=== PATIENT | female | born 1955 | race Caucasian/White ===

== ENCOUNTER 2016-08-06 10:44 | Emergency (ER) | payer BC | END 2016-08-06 13:19 | disposition home or self-care (01) | LOC: D.ER 10:44 | DX: M54.5 Low back pain (principal); I10 Essential (primary) hypertension ==

== ENCOUNTER 2016-08-26 06:47 | Outpatient (CLI) | payer BC ==
[~2016-08-26] VITALS: Ht 167.6 cm; Wt 77.7 kg
--- NOTE | ~2016-08-26 | HEMODYNAMI ---
PATIENT:JOSE DEGROOT MEDICAL RECORD: [id number] : 57 LOCATION:[facility] ADMISSION DATE: 08/26/16 Generatedon:08/26/201610:50 Patient name: JOSE DEGROOT Patient #: [id number] SSN: : 1955 Date of study: 08/26/2016 Page: Of Hemodynamic Procedure Report Patient Data Patient Demographics Procedure consent was obtained First Name: JOSE Gender: Female Last Name: MIKAYLA : 1955 [facility] Initial: NINA Age: 61 year(s) Patient #: [id number] Race: Unknown Additional ID: [id number] Contact details Address: [address] [place] [address] [address] State: [place] City: [place] Zip code: [address] Past Medical History Allergies Allergen Reaction Date Comments Reported Morphine 08/26/2016 Sulfa drugs 08/26/2016 Admission Admission Data Admission Date: 08/26/2016 Admission Time: 6:47 Lab Results Lab Result Date: 08/26/2016 Lab Result Time: 0:00 Biochemistry Name Units Result Min Max Creatinine mg/dl 1 --(--*-)-- 0.6 1.3 CBC Name Units Result Min Max Hemoglobin g/dl 14.3 --(*---)-- 13.5 17.5 Procedure Procedure Types Cath Procedure Diagnostic Procedure [facility] w/Coronaries Miscellaneous Procedures Moderate Sedation up to 15 minutes Procedure Description Procedure Date Procedure Date: 08/26/2016 Procedure Start Time: 10:42 Procedure End Time: 10:50 Procedure Staff Name Function Benja Ball MD Performing Physician Kg Otoole RT Scrub Mary Valencia RN Nurse Tiera Dean RT Monitor Luis F Rajput RN Electronics Teacher Procedure Data Cath Procedure Fluoroscopy Diagnostic fluoroscopy Total fluoroscopy Time: 1.1 time: 1.1 min min Diagnostic fluoroscopy Total fluoroscopy dose: 329 dose: 329 mGy mGy Contrast Material Contrast Material Type Amount (ml) Isovue 300 54 Entry Location Entry Primary Successful Side Size Upsize Upsize Entry Closure Elizalde ccessful Closure Location (Fr) 1 (Fr) 2 (Fr) Remarks Device Remarks Radial Right 6 Fr Mechanical artery Short Compression Estimated blood loss: 5 ml Diagnostic catheters Device Type Used For End Catheter Placement Diagnostic Terumo 5Fr LV Angiography Pope 110cm catheter Diagnostic Terumo 5Fr Right Coronary Pope 110cm catheter Angiography Diagnostic Terumo 5Fr Left Coronary Pope 110cm catheter Angiography Procedure Complications No complications Procedure Medications Medication Administration Route Dosage Oxygen NC 2 l/min Lidocaine 2% added to field 20 Heparin Flush Bag added to field 2 bags (1000units/500ml NS) 0.9% NaCl I.V. 100 ml/hr Versed I.V. 1 mg Fentanyl I.V. 50 mcg Radial Cocktail I.A. 1 syringe (Verapomil 2mg/Nitro 400mcg/Heparin 1500units) Versed I.V. 1 mg Fentanyl I.V. 50 mcg Hemodynamics Rest Pre Cath Intra NCS Post Cath Vital Signs Time Heart Resp SPO2 etCO2 PO3juqs NIBP (mmHg) Rhythm Pain Sedation Rate (ipm) (%) (mmHg) (mmHg) Status Level (bpm) 10:30:52 75 16 100 0 0 154/90(131) NSR 0 (11) 10(A) , No pain 10:35:08 69 16 99 0 0 122/78(104) NSR 0 (11) 10(A) , No pain 10:39:16 72 17 98 0 0 110/86(95) NSR 0 (11) 9(A) , No pain 10:43:26 85 16 96 0 0 114/66(94) NSR 0 (11) 9(A) , No pain 10:47:28 96 18 97 0 0 104/81(95) NSR 0 (11) 10(A) , No pain Medications Time Medication Route Dose Verified Delivered Reason Notes Effectiveness by by 10:31:25 Oxygen NC 2 l/min Benja Hernandez used for Lizzy Valencia RN procedure 10:31:34 Lidocaine 2% added 20ml Benja Yousif for local to vial Lizzy Ball MD anesthetic field 10:31:41 Heparin Flush added 2 bags Benja Yousif used for Bag to Lizzy Ball MD procedure (1000units/500ml field NS) 10:31:52 0.9% NaCl I.V. 100 Benja Buffie Per ml/hr Lizzy Valencia RN physician 10:36:01 Versed I.V. 1 mg Benja Hernandez for sedation Lizzy Valencia RN 10:36:07 Fentanyl I.V. 50 mcg Benja Hernandez for sedation Lizzy Valencia RN 10:42:54 Radial Cocktail I.A. 1 Benja Yousif for (Verapomil syringe Lizzy Ball MD vasodilation 2mg/Nitro 400mcg/Heparin 1500units) 10:42:59 Versed I.V. 1 mg Benja Hernandez for sedation Lizzy Valencia RN 10:43:03 Fentanyl I.V. 50 mcg Benja Hernandez for sedation Lizzy Valencia RN Procedure Log Time Note 10:17:20 Informed consent obtained and on chart 10:18:22 Luis F Rjaput RN sent for patient. Start room use. 10:18:23 Time tracking: Regular hours 10:18:27 Plan of Care:Hemodynamics will remain stable., Cardiac rhythm will remain stable., Comfort level will be maintained., Respiratory function will remain adequate., Patient/ family verbilizes understanding of procedure., Procedure tolerated without complication., Recovers from procedure without complications.. 10:19:21 Patient received from Pre/Post Procedure Room to CCL 1 Alert and oriented. Tansferred to table in Supine position. 10:19:22 Warm blankets applied, and quynh hugger turned on for patient comfort. 10:19:22 Correct patient and procedure confirmed by team. 10:19:23 ECG and BP/O2 sat monitors applied to patient. 10:19:24 Full Disclosure recording started 10:29:45 Vital chart was started 10:30:43 Rhythm: sinus rhythm 10:31:25 Oxygen 2 l/min NC was administered by Mary Valencia RN; used for procedure; 10:31:34 Lidocaine 2% 20ml vial added to field was administered by Benja Ball MD; for local anesthetic; 10:31:41 Heparin Flush Bag (1000units/500ml NS) 2 bags added to field was administered by Benja Ball MD; used for procedure; 10:31:52 0.9% NaCl 100 ml/hr I.V. was administered by Mary Valencia RN; Per physician; 10:32:59 H&P Date Dictated: 08/26/2016 New H&P dictated by physician.. 10:33:02 Pre-procedure instructions explained to patient. 10:33:02 Pre-op teaching completed and patient verbalized understanding. 10:33:26 Family in patients room. 10:33:27 Patient NPO since Midnight. 10:34:09 Patient allergic to Morphine 10:34:14 Patient allergic to Sulfa drugs 10:34:17 Is the patient allergic to Iodine/contrast media? No. 10:34:21 Is patient on blood thinner?Yes 10:34:24 Patient diabetic? No. 10:34:30 ACC The patient was administered the following blood thiners within the last 24 hours: ACCPlavix 10:34:34 Previous problem with sedation/anesthesia? No ? 10:34:35 Snore? Yes 10:34:37 Sleep apnea? No 10:34:39 Deviated septum? No 10:34:39 Opens mouth fully? Yes 10:34:40 Sticks out tongue? Yes 10:34:42 Airway obstruction? No ? 10:34:44 Dentures? No ? 10:34:47 Pre procedure: right dorsailis pedis pulse 2+ Normal; easily identifiable; not easily obliterated 10:34:50 Modified Chris's test Ulnar < 7 seconds 10:34:51 Patient pain scale 0/10 ?. 10:34:57 IV patent on arrival in left antecubital with 0.9% NaCl at KVO. 10:35:18 Lab Result : Hemoglobin 14.3 g/dl 10:35:18 Lab Result : Creatinine 1 mg/dl 10:35:22 Lab results completed and on chart. 10:35:26 Right Radial & Right Groin area was prepped with chlora-prep and draped in sterile fashion 10:35:27 Alarms reviewed by R. N. 10:35:27 Sharps counted by scrub and verified by R.N. 10:35:29 Use device set Radial Dx 10:35:30 Acist Syringe opened to sterile field. 10:35:31 Medline Cath Pack opened to sterile field. 10:35:31 Bag Decanter opened to sterile field. 10:35:32 Terumo 6Fr Slender Glidesheath opened to sterile field. 10:35:32 St Vijay 260cm J .035 wire opened to sterile field. 10:35:33 Acist Hand Control opened to sterile field. 10:35:33 Acist Manifold opened to sterile field. 10:35:34 Tegaderm 4 x 4 opened to sterile field. 10:35:51 Final Timeout: patient, procedure, and site verified with staff and physician. All members of the team are in agreement. 10:35:53 Right Radial site verified by team. 10:35:56 Physical assessment completed. ASA score P 2 - A patient with mild systemic disease as per Benja Ball MD. 10:35:59 Sedation plan: IV Moderate Sedation Versed, Fentanyl 10:36:01 Versed 1 mg I.V. was administered by Mary Valencia RN; for sedation; 10:36:07 Fentanyl 50 mcg I.V. was administered by Mary Valencia RN; for sedation; 10:42:41 Procedure started. 10:42:45 Local anesthetic to right radial artery with Lidocaine 2% by Benja Ball MD.INITIAL ACCESS ONLY 10:42:53 A 6 Fr Short sheath was inserted into the Right Radial artery 10:42:54 Radial Cocktail (Verapomil 2mg/Nitro 400mcg/Heparin 1500units) 1 syringe I.A. was administered by Benja Ball MD; for vasodilation; 10::59 Versed 1 mg I.V. was administered by Mary Valencia RN; for sedation; 10:43:03 Fentanyl 50 mcg I.V. was administered by Mary Valencia RN; for sedation; 10:43:09 A Diagnostic Terumo 5Fr Pope 110cm catheter was advanced over the wire and used for LV Angiography. 10:43:43 Zero performed for pressure channel P1 10:43:49 Zero performed for pressure channel P1 10:43:56 Zero performed for pressure channel P1 10:44:04 Zero performed for pressure channel P1 10:44:06 Zero performed for pressure channel P1 10:44:09 Zero performed for pressure channel P1 10:44:30 LV gram done using WAGNER 10:44:34 EF : 55 % 10:44:37 LV hemodynamics recorded. 10:44:41 Injector settings: Ml/sec: 5, Volume: 15, 10:44:55 A Diagnostic Terumo 5Fr Pope 110cm catheter was advanced over the wire and used for Right Coronary Angiography. 10:45:44 A Diagnostic Terumo 5Fr Pope 110cm catheter was advanced over the wire and used for Left Coronary Angiography. 10:46:34 Catheter removed. 10:46:45 Sheath removed intact; hemostasis achieved with Mechanical Compression to the Right Radial artery. 10:46:54 Terumo TR Band Standard opened to sterile field. 10:47:08 Procedure ended.(Physican Out) 10:47:24 Fluoroscopy time 01.10 minutes. 10:47:27 Fluoroscopy dose: 329 mGy 10:47:27 Flurop Dose total: 329 10:47:31 Contrast amount:Isovue 300 54ml. 10:47:32 Sharps counted by scrub and verified by R.N. 10:47:35 TR band inflated with 10cc of air. 10:47:36 Insertion/operative site no bleeding no hematoma. 10:47:44 Post right radial artery:stable, clean and dry 10:47:46 Post Procedure Pulses reassessed and unchanged 10:47:53 Post-procedure physical assessment completed. ASA score P 2 - A patient with mild systemic disease as per Benja Ball MD. 10:47:55 Post procedure rhythm: unchanged. 10:47:57 Estimated blood loss: 5 ml 10:47:59 Post procedure instruction explained to patient.Patient verbalizes understanding. 10:47:59 Patient needs reinforcement of post procedure teaching. 10:48:13 Procedure type changed to Cath procedure, Diagnostic procedure, LHC, LHC w/Coronaries, Miscellaneous Procedures, Moderate Sedation up to 15 minutes 10:48:18 Procedure Complication : No complications 10:48:22 See physician's report for complete and final results. 10:50:00 Procedure and supply charges have been captured, reviewed, submitted and are correct. 10:50:01 Vital chart was stopped 10:50:03 Report given to Pre/Post Procedure Room. 10:50:06 Patient transfered to Pre/Post Procedure Room with Stretcher. 10:50:14 Procedure ended. 10:50:14 Full Disclosure recording stopped 10:50:16 End room use (Document Last) Device Usage Item Name Manufacture Quantity Catalog Hospital Part Current Minimal Lot# / Number Charge Number Stock Stock Serial# Code Acist Acist 1 [id number] [id number] [id number] [id number] 20 Syringe Truli Inc Medline Cardinal 1 [id number] 41315 [id number] 5 Cath Pack Health Bag Microtek 1 [id number] [id number] 58022 764246 5 Alea Inc. Terumo 6Fr Terumo 1 [id number] 466054 466480 238247 [address] St Vijay 1 501648 060676 345893 811685 30 260cm J .035 wire Acist Hand Acist 1 79086 988497 017349 908452 5 Control Medical Systems Inc Acist Acist 1 73967 702810 816072 995616 5 Manifold Medical Systems Inc Tegaderm 4 3M 1 [id number] 541149 979882 244022 5 x 4 Diagnostic Terumo 1 40-6071 682750 224204 358307 5 Terumo 5Fr Pope 110cm catheter Terumo TR Terumo 1 [id number] 147707 546336 294524 40 Band Standard Signature Audit Benedicta Stage Time Signature Unsigned Intra-Procedure 08/26/2016 Tiera 10:50:35 AM Counts RT(R) Signatures Monitor : Tiera Signature : Counts RT Date : Time : [address] [address]
[2016-08-26] MEDS ORDERED: PLAVIX75 MG PO (07:12)
[2016-08-26] MEDS ORDERED: TENORMIN25 MG PO (07:12)
[2016-08-26] MEDS ORDERED: ALEVE220 MG PO (07:13)
[2016-08-26 07:18] VITALS: BP 167/90; Ht 167.6 cm; Wt 77.7 kg
[2016-08-26 08:08] LABS: BASOPHILS 0.4 % (0-2); EOSINOPHILS 2.2 % (0-7); HEMATOCRIT 43.9 % (36.0-48.0); HEMOGLOBIN 14.3 g/dL (12-16); IMMATURE GRANULOCYTES 0.3 % (0-5); LYMPHOCYTES 28.8 % (15-50); MCH 28.6 pg (26.0-34.0); MCHC 32.6 g/dL (31.0-37.0); MCV 87.8 fL (80.0-100.0); MEAN PLATELET VOLUME 10.6 fL (7.4-10.4); NEUTROPHILS 60.3 % (40-80); PLATELET COUNT 254 10x3/uL (130-400); RDW 12.8 % (11.5-14.5); WBC 6.7 10x3/uL (4.8-10.8)
[2016-08-26 08:27] LABS: CALC OSMOLALITY 290 mosm/kg (275-300); CALCIUM 9.3 mg/dL (8.5-10.1); CARBON DIOXIDE 30.7 mmol/L (21.0-32.0); CHLORIDE - SERUM 106 mmol/L (98-107); CKMB 0.8 U/L (0.0-3.6); CREATINE KINASE 104 UL (21-215); GLUCOSE 95 mg/dL (74-106); POTASSIUM - SERUM 3.9 mmol/L (3.5-5.1); SODIUM 145 mmol/L (136-145); UREA NITROGEN 19 mg/dL (7-18); eGFR NON AFRICAN AMERICAN 60 mL/min (90-120)
[2016-08-26 08:29] LABS: TROPONIN-I < 0.017 ng/mL (0.000-0.060)
--- NOTE | 2016-08-26 11:00 | NUR ---
1100 RECIEVED TO ROOM VIA STRETCHER WITH TR BAND TO R/WRIST CDI NO BLEEDING NO HEMATOMA NOTED. REPORTS OF A CLEAN CATH WITH NO INTERVENTION AT THIS TIME. VSS WITH FAMILY AT SIDE
--- NOTE | 2016-08-26 11:30 | NUR ---
RESTING QUIETLY WITH CHEST PAIN DENIED. VSS WITH TR BAND TO R/WRIST CDI
--- NOTE | 2016-08-26 12:32 | NUR ---
2 CC AIR REMOVED FROM TR BAND WITH NO BLEEDING NOTED. REPOSITIONED TO SITTING WITH HOB UP 30 DEGREES. SANDWICH AND SODA TO BEDSIDE
--- NOTE | 2016-08-26 13:31 | NUR ---
1300 PT HAS TOLERATED SANDWICH WITH NO C/O NAUSEA. TR BAND HAS BEEN REMOVED, 2X2 AND TEGADERM PLACED TO SITE. NO BLEEDING OR HEMATOMA NOTED. AWAITING DR MERRITT TO SPEAK WITH PT. IV HAS BEEN DC'D WITH CATH INTACT. 1315 DR MERRITT HAS ROUNDED ON PT. REVIEWED DC INSTRUCTIONS AND PT VERBALIZES UNDERSTANDING. PT ESCORTED TO PRIVATE AUTO VIA WC BY STAFF WITH DAUGHTER DRIVING HER HOME.
--- NOTE | 2016-08-28 11:01 | HP ---
PATIENT: JOSE DEGROOT MEDICAL RECORD: [id number] ACCOUNT: [id number] LOCATION:[facility] : 57 ADMISSION DATE: 08/26/16 HISTORY AND PHYSICAL EXAMINATION PROBLEM LIST: 1. Angina. 2. Abnormal nuclear stress test. 3. Coronary artery disease. 4. Previous percutaneous transluminal coronary angioplasty stent. 5. Chronic NSAID therapy. 6. Gastroesophageal reflux disease. HISTORY OF PRESENT ILLNESS: The patient has had chest pain for the past two months in a somewhat escalating fashion. She does have a history of coronary artery disease, percutaneous transluminal coronary angioplasty stent approximately five years ago. She has done well until just recently. Due to the chest pain and chest discomfort, she underwent nuclear stress test revealing significant defect inferiorly septally. She is now brought for cardiac catheterization. PHYSICAL EXAMINATION: HEAD, EYES, EARS, NOSE, AND THROAT: Benign. NECK: Supple. No jugular venous distention. Carotid upstroke plus two bilaterally without bruits. LUNGS: Overall clear to auscultation and percussion. HEART: Regular. Normal S1, normal S2. No S3, no S4. No murmurs. BONES, JOINTS, EXTREMITIES: No clubbing, cyanosis, or edema. REVIEW OF SYSTEMS: Negative for myocardial infarction. Negative for coronary artery bypass graft surgery. Negative for cerebrovascular accident. Negative for carcinoma. Negative for smoking. Negative for atrial fibrillation. Negative for diabetes. Positive for hypertension on atenolol. OVERALL IMPRESSION: Chest discomfort, abnormal nuclear stress test, history of coronary artery disease. She has a high likelihood of recurrent hemodynamically significant coronary artery disease. Will proceed with coronary angiography. Further care depends upon the findings of the angiography. GEORGINA MERRITT MD at 1101 CC: [id number] DICTATION DATE: 08/26/16 0800 CONTINUOUS DRYOUT OPERATOR HELPER: DM 08/26/16 1118 DEP CLI 08/26/16 [facility] [address] [place] [address]
--- NOTE | 2016-08-28 11:01 | OP ---
PATIENT NAME: JOSE DEGROOT MEDICAL RECORD: [id number] :57 LOCATION:D[facility] ADMISSION DATE: SURGEON: GEORGINA MERRITT MD OPERATION DATE: 08/26/16 PROCEDURES: 1. Left heart catheterization. 2. Selective coronary angiography. 3. Left ventriculogram. INDICATION: 1. Chest pain compatible with angina. 2. Abnormal nuclear stress test. PROCEDURE IN DETAIL: After informed consent was obtained and after detailed explanation of risks, benefits, as well as alternative therapies, the patient elected to proceed with angiogram. The right radial area was prepped and draped in a normal sterile fashion. The right radial artery was cannulated via modified Seldinger technique with placement of 5-[place] sheath. All catheters exchanged through this sheath. FINDINGS: Left ventriculogram was performed in standard 30 degree WAGNER view, reveals good cardiac wall motion throughout all segments. Overall ejection fraction estimated 60%. SELECTIVE CORONARY ANGIOGRAPHY: The left main, left anterior descending, left circumflex, and right coronary artery are all smooth-walled vessels with no angiographic evidence of coronary artery disease. OVERALL IMPRESSION: 1. No angiographic evidence of coronary artery disease. 2. Normal left heart pressures. 3. Normal left ventricular systolic function. 4. Chest pain at this point is noncardiac in etiology. No further cardiac workup needs to be ascertained. GEORGINA MERRITT MD at 1101 CC: [id number] DICTATION DATE: 08/26/16 1100 UNDERTAKER ASSISTANT: DM 08/26/16 1126 DEP CLI 08/26/16 [place] [id number] [place] [id number]
== END 2016-08-26 13:15 | disposition home or self-care (01) ==
LOC: D.CATH 06:47
PROVIDERS: Internal Medicine Interventional Cardiology
DX: R07.89 Other chest pain (principal); Z01.812 Encounter for preprocedural laboratory examination

== ENCOUNTER 2017-01-26 11:10 | Day surgery (SDC) | payer BC ==
[2016-08-26 07:18] VITALS: BMI 27.6
[~2017-01-26 11:10] MED LIST: ALEVE220 MG PO; PLAVIX75 MG PO; TENORMIN25 MG PO
--- NOTE | 2017-01-26 11:57 | NUR ---
1115-RECD TO ROOM. COPY OF MRI FROM [facility] ACQUIRED. 1130-DR SHIELDS HERE TO EVALUATE PATIENT. 1145-CONTACT MADE WITH DR SANCHES'S OFFICE AND FACE SHEET AND MRI FAXED. 1150-PATIENT DISCHARGED - DR SANCHES'S OFFICE WILL CONTACT HER WITH APPOINTMENT.
== END 2017-01-26 23:59 | disposition home or self-care (01) ==
LOC: D.OPS 11:10
DX: M51.36 Other intervertebral disc degeneration, lumbar region (principal); Z01.810 Encounter for preprocedural cardiovascular examination; Z01.811 Encounter for preprocedural respiratory examination; Z01.812 Encounter for preprocedural laboratory examination; Z53.9 Procedure and treatment not carried out, unspecified reason

== ENCOUNTER 2018-05-13 21:34 | Emergency (ER) | payer BC ==
[~2018-05-13] VITALS: Ht 167.6 cm; Wt 81.8 kg
[2018-05-13 21:55] VITALS: Ht 167.6 cm; Wt 81.8 kg
[2018-05-13] MEDS ORDERED: NORVASC10 MG PO (21:56)
[2018-05-13 22:31] LABS: BASOPHILS 0.5 % (0-2); EOSINOPHILS 5.1 % (0-7); HEMATOCRIT 40.2 % (36.0-48.0); HEMOGLOBIN 12.8 g/dL (12-16); IMMATURE GRANULOCYTES 0.2 % (0-5); LYMPHOCYTES 40.5 % (15-50); MCH 27.6 pg (26.0-34.0); MCHC 31.8 g/dL (31.0-37.0); MCV 86.8 fL (80.0-100.0); MEAN PLATELET VOLUME 10.3 fL (7.4-10.4); MONOCYTES 6.8 % (2-11); NEUTROPHILS 46.9 % (40-80); PLATELET COUNT 207 10x3/uL (130-400); RBC 4.63 10x6/uL (4.00-5.40); RDW 13.4 % (11.5-14.5); WBC 5.5 10x3/uL (4.8-10.8)
[2018-05-13 22:46] LABS: ALBUMIN 3.6 g/dL (3.4-5.0); ANION GAP 11.3 mmol/L (8-16); BILIRUBIN - TOTAL 0.52 mg/dL (0.2-1.3); CARBON DIOXIDE 29.4 mmol/L (21.0-32.0); CREATININE - SERUM 1.2 mg/dL (0.6-1.3); POTASSIUM - SERUM 3.7 mmol/L (3.5-5.1); PROTEIN - SERUM 7.3 g/dL (6.4-8.2)
[2018-05-13] MEDS ORDERED: MAXZIDE 75/501 TAB PO (23:17)
[2018-05-14 00:10] VITALS: BP 133/88
== END 2018-05-14 00:11 | disposition home or self-care (01) ==
LOC: D.ER 21:34
PROVIDERS: Emergency Medicine
DX: I87.303 Chronic venous hypertension (idiopathic) without complications of bilateral lower extremity (principal)

== ENCOUNTER 2019-07-23 15:53 | Emergency (ER) | payer BC ==
[~2019-07-23] VITALS: Ht 167.6 cm; Wt 82.7 kg
[~2019-07-23 15:53] MED LIST changes: +MAXZIDE 75/501 TAB PO; +NORVASC10 MG PO
[2019-07-23 16:10] VITALS: Ht 167.6 cm; Wt 82.7 kg
[2019-07-23] MEDS ORDERED: ZANAFLEX4 MG PO (16:59)
[2019-07-23] MEDS ORDERED: COZAAR50 MG PO (16:59)
[2019-07-23] MEDS ORDERED: LEXAPRO10 MG PO (16:59)
[2019-07-23 17:03] LABS: BASOPHILS 0.4 % (0-2); EOSINOPHILS 1.4 % (0-7); HEMATOCRIT 40.9 % (36.0-48.0); HEMOGLOBIN 12.8 g/dL (12-16); IMMATURE GRANULOCYTES 0.4 % (0-5); LYMPHOCYTES 33.1 % (15-50); MCH 27.7 pg (26.0-34.0); MCHC 31.3 g/dL (31.0-37.0); MCV 88.5 fL (80.0-100.0); MEAN PLATELET VOLUME 10.4 fL (7.4-10.4); MONOCYTES 5.7 % (2-11); PLATELET COUNT 244 10x3/uL (130-400); RBC 4.62 10x6/uL (4.00-5.40); RDW 13.3 % (11.5-14.5); WBC 7.3 10x3/uL (4.8-10.8)
[2019-07-23] MEDS ORDERED: OMEPRAZOLE20 M1 PO (17:06)
[2019-07-23] MEDS ORDERED: NAPROXEN SODIU220 M1 PO (17:07)
[2019-07-23 17:17] LABS: CALC OSMOLALITY 284 mosm/kg (275-300); CALCIUM 9.1 mg/dL (8.5-10.1); CARBON DIOXIDE 28.4 mmol/L (21.0-32.0); CHLORIDE - SERUM 105 mmol/L (98-107); CREATININE - SERUM 1.3 mg/dL (0.6-1.3); GLUCOSE 98 mg/dL (74-106); POTASSIUM - SERUM 3.9 mmol/L (3.5-5.1); SODIUM 142 mmol/L (136-145); UREA NITROGEN 17 mg/dL (7-18); eGFR NON AFRICAN AMERICAN 44 mL/min (90-120)
[2019-07-23 17:34] LABS: ALKALINE PHOSPHATASE 117 U/L (30-120); ALT (SGPT) 31 U/L (10-68); BILIRUBIN - TOTAL 0.51 mg/dL (0.2-1.3); CKMB 1.3 U/L (0.0-3.6); CREATINE KINASE 123 UL (21-215); PRO BNP 433 pg/mL (0-125); PROTEIN - SERUM 7.2 g/dL (6.4-8.2); TROPONIN-I < 0.017 ng/mL (0.000-0.060)
[2019-07-23 19:51] VITALS: BP 132/78
== END 2019-07-23 19:52 | disposition home or self-care (01) ==
LOC: EDBD 15:53 → D.ER 15:53
PROVIDERS: Family Medicine
DX: I10 Essential (primary) hypertension (principal); R42 Dizziness and giddiness; R79.89 Other specified abnormal findings of blood chemistry; R07.9 Chest pain, unspecified